=== PATIENT | female | born 1955 | race Caucasian/White ===

== ENCOUNTER 2022-02-17 16:16 | Observation (INO) | payer BC ==
[2022-02-17 20:14] VITALS: BMI 32.6
[2022-02-17] MEDS ORDERED: hydrALAZINE 20 MG/ML VIAL SLOW IVP PRN (20:43)
[2022-02-17] MEDS ORDERED: Ondansetron PF 4 MG/2 ML Vial IVP PRN (20:43)
[2022-02-17] MEDS ORDERED: Acetaminophen 325 MG TAB PO PRN (20:43)
[2022-02-17] MEDS ORDERED: Dextrose 5% in Water 1,000 ML IV PRN (20:43)
[2022-02-17] MEDS ORDERED: Ondansetron ODT 4 MG TAB PO PRN (20:43)
[2022-02-17] MEDS ORDERED: Acetaminophen 650 MG Suppository PR PRN (20:43)
[2022-02-17] MEDS ORDERED: HumaLOG 300 UNITS/3 ML VIAL SC PRN ×2 (20:43)
[2022-02-17] MEDS ORDERED: Dextrose 50% Abboject 50 ML SYRINGE SLOW IVP PRN (20:43)
[2022-02-18 05:54] LABS: #Eosinphils 0.1 thou/uL (0.0-0.7); #Lymphocytes 1.4 thou/uL (1.20-3.40); #Monocytes 0.6 thou/uL (0.11-0.59); #Neutrophils 1.9 thou/uL (1.40-6.50); %Basophils 1.2 % (0.0-1.0); %Eosinophils 2.2 % (0.0-10.0); %Lymphocytes 34.3 % (21.0-51.0); %Monocytes 14.2 % (0.0-10.0); %Neutrophils 48.1 % (42.0-75.0); Hemoglobin 12.1 g/dL (12.0-16.0); Mean Corpuscular HGB CONC 32.9 g/dL (32.0-36.0); Mean Corpuscular Hemoglobin 31.3 pg (27.0-31.0); Mean Corpuscular Volume 94.9 fL (78.0-98.0); Mean Platelet Volume 7.6 fL (7.4-10.4); Platelet Count 116 thou/uL (130-400); RBC Distribution Width 12.8 % (11.5-14.5); Red Blood Cell (RBC) Count 3.86 mill/uL (4.20-5.40); White Blood Cell (WBC) Count 3.9 thou/uL (4.8-10.8)
[2022-02-18 06:49] LABS: Anion Gap 13 mmol/L (10-20); BUN (Urea Nitrogen) 17 mg/dL (9.8-20.1); Calc. Creatinine Clearance 96 mL/min (70-130); Calcium 9.1 mg/dL (7.8-10.44); Carbon Dioxide 22 mmol/L (23-31); Cardiac Risk 5.1 (Less than 4.5); Chloride 105 mmol/L (98-107); Cholesterol 138 mg/dl (< 200 Desired); Glucose 125 mg/dL (80-115); HDL Cholesterol 27 mg/dL (>60 Neg Risk); LDL Cholesterol, Calculated 78 mg/dL; Potassium 3.9 mmol/L (3.5-5.1); Sodium 136 mmol/L (136-145); Triglycerides 163 mg/dL (Less than 150)
[2022-02-18] MEDS ORDERED: Aspirin 81 mg Enteric Coated Tablet PO SCH (09:00)
[2022-02-18] MEDS ORDERED: tiZANidine HCl 4 MG TAB PO PRN (13:58)
[2022-02-18] MEDS ORDERED: Gabapentin 300 MG CAP PO SCH (15:00)
[2022-02-18 15:47] VITALS: BP 150/98; TEMP 97.9
[2022-02-18] MEDS ORDERED: Atorvastatin Calcium 40 MG TAB PO SCH (21:00)
[2022-02-19] MEDS ORDERED: Amlodipine 10 MG TAB PO SCH (09:00)
[2022-02-19] MEDS ORDERED: Insulin Glargine 30 UNITS/0.3 ML VIAL SC SCH ×2 (09:00)
[2022-02-19] MEDS ORDERED: Losartan 25 MG TAB PO SCH (09:00)
[2022-02-19] MEDS ORDERED: Ezetimibe 10 MG TAB PO SCH (09:00)
[2022-02-19] MEDS ORDERED: Bupropion 150 MG XL TAB PO SCH (09:00)
== END 2022-02-18 17:40 | disposition home or self-care (01) ==
LOC: NEURO 17:50
PROVIDERS: ADMIT Internal Medicine; ATTEND Internal Medicine
DX: R20.2 Paresthesia of skin (principal); E11.9 Type 2 diabetes mellitus without complications; E78.5 Hyperlipidemia, unspecified; I10 Essential (primary) hypertension; M50.31 Other cervical disc degeneration, high cervical region; M48.02 Spinal stenosis, cervical region; I08.1 Rheumatic disorders of both mitral and tricuspid valves; E66.9 Obesity, unspecified; Z68.32 Body mass index [BMI] 32.0-32.9, adult; Z87.891 Personal history of nicotine dependence; Z79.4 Long term (current) use of insulin; Z79.84 Long term (current) use of oral hypoglycemic drugs; Z79.899 Other long term (current) drug therapy
CPT/HCPCS: 36415; 36416; 70551; 72141; 80048; 80061; 85025; 93306; 95712; 95819; 95957; G0378; J1815

== ENCOUNTER 2022-12-10 15:33 | Inpatient (IN) | payer MEDICARE ==
[2022-12-10 16:56] VITALS: BMI 31.2
[2022-12-10] MEDS ORDERED: Acetaminophen 500 MG TAB PO SCH (17:30)
[2022-12-10] MEDS ORDERED: cefTRIAXone Sodium 1,000 MG in Syringe 0 ML IVPB SCH (18:00)
[2022-12-10] MEDS ORDERED: Dextrose 5% in Water 1,000 ML IV PRN (18:19)
[2022-12-10] MEDS ORDERED: Dextrose 50% Abboject 50 ML SYRINGE SLOW IVP PRN (18:19)
[2022-12-10] MEDS: cefTRIAXone\\ROCEPHIN 1 GM in Sodium Chloride 0.9% 100 ML IVPB SCH (18:28)
[2022-12-10] MEDS: Sodium Chloride 0.9% 1,000 ML IV SCH (18:28)
[2022-12-10 19:51] LABS: Anion Gap 18 mmol/L (10-20); BUN (Urea Nitrogen) 44 mg/dL (9.8-20.1); Calc. Creatinine Clearance 46 mL/min (70-130); Calcium 8.3 mg/dL (7.8-10.44); Carbon Dioxide 16 mmol/L (23-31); Chloride 95 mmol/L (98-107); Estimated GFR 29; Glucose 227 mg/dL (80-115); Potassium 4.7 mmol/L (3.5-5.1); Sodium 124 mmol/L (136-145)
[2022-12-10 20:20] LABS: Bacteria/HPF 4+ HPF (None Seen); Bilirubin Negative (Negative); Blood, Urine Trace (Negative); CAUTI Indications for Culture Dysuria,urgency,freq; Clarity Turbid (Clear); Glucose, Urine (Dipstick) Normal (Negative); Ketone, Urine Negative (Negative); Leukocyte 500 Leu/uL (Negative); Nitrite Negative (Negative); Protein, Urine (Dipstick) 70 mg/dL (Neg-Trace); WBC/HPF Greater than 50 HPF (0-3); pH, Urine 5.5 (5.0-9.0)
[2022-12-10 20:22] LABS: Urine Culture Reflex Yes Yes
[2022-12-10 20:33] LABS: Creatinine, Urine 144.25 mg/dL (47-110); Potassium, Urine 38.7 mmol/L; Sodium, Urine Less than 20 mmol/L (Not Available)
[2022-12-10 20:49] LABS: SARS-CoV-2 NAA Rapid Test Not Detected (NotDetected)
[2022-12-10] MEDS: HumaLOG 300 UNITS/3 ML VIAL SC PRN (21:09)
[2022-12-10] MEDS: Insulin Glargine 30 UNITS/0.3 ML VIAL SC SCH (21:09)
[2022-12-10] MEDS: Heparin 5,000 UNITS/ML VIAL SC SCH (21:10)
[2022-12-10] MEDS: Morphine 2 MG/ML VIAL SLOW IVP PRN (21:19)
[2022-12-11 00:24] LABS: Anion Gap 12 mmol/L (10-20); BUN (Urea Nitrogen) 47 mg/dL (9.8-20.1); Calc. Creatinine Clearance 46 mL/min (70-130); Calcium 8.1 mg/dL (7.8-10.44); Carbon Dioxide 21 mmol/L (23-31); Chloride 97 mmol/L (98-107); Estimated GFR 29; Glucose 222 mg/dL (80-115); Potassium 4.5 mmol/L (3.5-5.1); Sodium 125 mmol/L (136-145)
[2022-12-11] MEDS: Acetaminophen 500 MG TAB PO PRN ×2 (03:16→21:04)
[2022-12-11] MEDS: Sodium Chloride 0.9% 1,000 ML IV SCH ×2 (03:18→14:05)
[2022-12-11] MEDS: Morphine 2 MG/ML VIAL SLOW IVP PRN ×3 (03:58→16:32)
[2022-12-11 07:39] LABS: Anion Gap 12 mmol/L (10-20); BUN (Urea Nitrogen) 46 mg/dL (9.8-20.1); Calc. Creatinine Clearance 50 mL/min (70-130); Calcium 7.8 mg/dL (7.8-10.44); Carbon Dioxide 20 mmol/L (23-31); Chloride 98 mmol/L (98-107); Estimated GFR 32; Glucose 201 mg/dL (80-115); Potassium 4.4 mmol/L (3.5-5.1); Sodium 126 mmol/L (136-145)
[2022-12-11] MEDS: Amlodipine 10 MG TAB PO SCH (08:04)
[2022-12-11] MEDS: Heparin 5,000 UNITS/ML VIAL SC SCH ×3 (08:10→21:04)
[2022-12-11] MEDS: Aspirin 81 mg Enteric Coated Tablet PO SCH (08:10)
[2022-12-11 08:32] LABS: Iron 19 ug/dL (50-170); Iron Binding Capacity, Total 270 mcg/dL (265-497)
[2022-12-11] MEDS: cefTRIAXone\\ROCEPHIN 1 GM in Sodium Chloride 0.9% 100 ML IVPB SCH (17:21)
[2022-12-11] MEDS: Atorvastatin Calcium 40 MG TAB PO SCH (21:04)
[2022-12-11] MEDS: Insulin Glargine 30 UNITS/0.3 ML VIAL SC SCH (21:05)
[2022-12-12] MEDS: Sodium Chloride 0.9% 1,000 ML IV SCH ×3 (01:54→20:20)
[2022-12-12] MEDS: Morphine 2 MG/ML VIAL SLOW IVP PRN ×2 (04:00→20:20)
[2022-12-12 06:24] LABS: Hemoglobin 8.5 g/dL (12.0-16.0); Mean Corpuscular HGB CONC 30.9 g/dL (32.0-36.0); Mean Corpuscular Hemoglobin 28.8 pg (27.0-31.0); Mean Corpuscular Volume 93.2 fl (78.0-98.0); Mean Platelet Volume 8.3 fL (7.4-10.4); Platelet Count 127 10x3/uL (130-400); RBC Distribution Width 14.5 % (11.5-14.5); Red Blood Cell (RBC) Count 2.94 mill/uL (4.20-5.40); White Blood Cell (WBC) Count 8.7 10x3/uL (4.8-10.8)
[2022-12-12 06:43] LABS: Anion Gap 12 mmol/L (10-20); BUN (Urea Nitrogen) 38 mg/dL (9.8-20.1); Calc. Creatinine Clearance 66 mL/min (70-130); Calcium 8.1 mg/dL (7.8-10.44); Carbon Dioxide 19 mmol/L (23-31); Chloride 100 mmol/L (98-107); Estimated GFR 45; Glucose 156 mg/dL (80-115); Potassium 3.9 mmol/L (3.5-5.1); Sodium 127 mmol/L (136-145)
[2022-12-12] MEDS: Aspirin 81 mg Enteric Coated Tablet PO SCH (07:55)
[2022-12-12] MEDS: Ferrous Sulfate 325 MG TAB PO SCH (07:55)
[2022-12-12] MEDS: Heparin 5,000 UNITS/ML VIAL SC SCH ×3 (07:55→19:57)
[2022-12-12] MEDS: Ezetimibe 10 MG TAB PO SCH (07:56)
[2022-12-12] MEDS: Amlodipine 10 MG TAB PO SCH (07:56)
[2022-12-12] MEDS: Acetaminophen 500 MG TAB PO PRN ×3 (08:00→19:57)
[2022-12-12] MEDS ORDERED: Meropenem 1 GM in Sodium Chloride 0.9% 100 ML IVPB SCH ×2 (09:15→14:00)
[2022-12-12 11:02] LABS: Band 3 % (5-11); Hypochromia SLIGHT = 6-15 cells (100X) (0-5/hpf); Lymphocytes 13 % (21-51); MDiff Complete? YES; Monocytes 9 % (0-10); Neutrophil 75 % (42-75); Platelet Morphology Comment Appears Decreased; Polychromasia SLIGHT = 2-3 cells (100X) (0-2/hpf)
[2022-12-12] MEDS: Atorvastatin Calcium 40 MG TAB PO SCH (19:56)
[2022-12-12] MEDS: Insulin Glargine 30 UNITS/0.3 ML VIAL SC SCH (20:02)
[2022-12-12] MEDS: Meropenem 1 GM in Sodium Chloride 0.9% 100 ML IVPB SCH (21:15)
[2022-12-13] MEDS: Meropenem 1 GM in Sodium Chloride 0.9% 100 ML IVPB SCH ×3 (05:50→22:26)
[2022-12-13] MEDS: Acetaminophen 500 MG TAB PO PRN ×3 (05:54→19:57)
[2022-12-13] MEDS: Sodium Chloride 0.9% 1,000 ML IV SCH ×2 (06:05→15:01)
[2022-12-13 07:27] LABS: #Basophils 0.1 thou/uL (0.0-0.2); #Lymphocytes 0.8 thou/uL (1.20-3.40); #Monocytes 0.9 thou/uL (0.11-0.59); #Neutrophils 4.9 thou/uL (1.40-6.50); %Basophils 2.2 % (0.0-1.0); %Eosinophils 0.7 % (0.0-10.0); %Lymphocytes 11.8 % (21.0-51.0); %Monocytes 13.6 % (0.0-10.0); %Neutrophils 71.7 % (42.0-75.0); Hemoglobin 8.1 g/dL (12.0-16.0); Mean Corpuscular HGB CONC 31.1 g/dL (32.0-36.0); Mean Corpuscular Hemoglobin 28.8 pg (27.0-31.0); Mean Corpuscular Volume 92.5 fl (78.0-98.0); Mean Platelet Volume 8.1 fL (7.4-10.4); Platelet Count 142 10x3/uL (130-400); RBC Distribution Width 14.8 % (11.5-14.5); Red Blood Cell (RBC) Count 2.81 mill/uL (4.20-5.40); White Blood Cell (WBC) Count 6.9 10x3/uL (4.8-10.8)
[2022-12-13 08:03] LABS: Anion Gap 11 mmol/L (10-20); BUN (Urea Nitrogen) 25 mg/dL (9.8-20.1); Calc. Creatinine Clearance 93 mL/min (70-130); Carbon Dioxide 18 mmol/L (23-31); Chloride 104 mmol/L (98-107); Estimated GFR 67; Glucose 147 mg/dL (80-115); Potassium 3.7 mmol/L (3.5-5.1); Sodium 129 mmol/L (136-145)
[2022-12-13] MEDS: Aspirin 81 mg Enteric Coated Tablet PO SCH (08:35)
[2022-12-13] MEDS: Heparin 5,000 UNITS/ML VIAL SC SCH ×3 (08:35→20:00)
[2022-12-13] MEDS: Amlodipine 10 MG TAB PO SCH (08:36)
[2022-12-13] MEDS: Ezetimibe 10 MG TAB PO SCH (08:36)
[2022-12-13] MEDS: Ferrous Sulfate 325 MG TAB PO SCH (08:36)
[2022-12-13] MEDS: Atorvastatin Calcium 40 MG TAB PO SCH (19:57)
[2022-12-13] MEDS: Insulin Glargine 30 UNITS/0.3 ML VIAL SC SCH (19:59)
[2022-12-13] MEDS: HumaLOG 300 UNITS/3 ML VIAL SC PRN (20:00)
[2022-12-14] MEDS: Acetaminophen 500 MG TAB PO PRN ×3 (01:17→20:21)
[2022-12-14] MEDS: Sodium Chloride 0.9% 1,000 ML IV SCH ×2 (04:19→11:57)
[2022-12-14] MEDS: Meropenem 1 GM in Sodium Chloride 0.9% 100 ML IVPB SCH ×3 (05:25→21:29)
[2022-12-14 06:31] LABS: #Eosinphils 0.1 thou/uL (0.0-0.7); #Lymphocytes 1.3 thou/uL (1.20-3.40); #Monocytes 0.9 thou/uL (0.11-0.59); #Neutrophils 4.9 thou/uL (1.40-6.50); %Basophils 0.5 % (0.0-1.0); %Eosinophils 1.3 % (0.0-10.0); %Lymphocytes 17.6 % (21.0-51.0); %Monocytes 12.1 % (0.0-10.0); %Neutrophils 68.6 % (42.0-75.0); Hemoglobin 8.8 g/dL (12.0-16.0); Mean Corpuscular HGB CONC 32.1 g/dL (32.0-36.0); Mean Corpuscular Hemoglobin 29.7 pg (27.0-31.0); Mean Corpuscular Volume 92.6 fl (78.0-98.0); Platelet Count 168 10x3/uL (130-400); RBC Distribution Width 14.9 % (11.5-14.5); Red Blood Cell (RBC) Count 2.97 mill/uL (4.20-5.40); White Blood Cell (WBC) Count 7.1 10x3/uL (4.8-10.8)
[2022-12-14 06:54] LABS: Anion Gap 9 mmol/L (10-20); BUN (Urea Nitrogen) 16 mg/dL (9.8-20.1); Calc. Creatinine Clearance 99 mL/min (70-130); Calcium 8.3 mg/dL (7.8-10.44); Carbon Dioxide 22 mmol/L (23-31); Chloride 104 mmol/L (98-107); Estimated GFR 73; Glucose 119 mg/dL (80-115); Potassium 4.1 mmol/L (3.5-5.1); Sodium 131 mmol/L (136-145)
[2022-12-14] MEDS: Heparin 5,000 UNITS/ML VIAL SC SCH ×3 (08:24→20:22)
[2022-12-14] MEDS: Ezetimibe 10 MG TAB PO SCH (08:24)
[2022-12-14] MEDS: Losartan 25 MG TAB PO SCH (08:24)
[2022-12-14] MEDS: Ferrous Sulfate 325 MG TAB PO SCH (08:24)
[2022-12-14] MEDS: Aspirin 81 mg Enteric Coated Tablet PO SCH (08:24)
[2022-12-14] MEDS: Amlodipine 10 MG TAB PO SCH (08:24)
[2022-12-14 16:15] LABS: A/G Ratio 0.6 (0.7-1.7); Albumin 2.4 g/dL (2.9-4.4); Alpha 1 0.4 g/dL (0.0-0.4); Alpha 2 0.9 g/dL (0.4-1.0); Beta 1.1 g/dL (0.7-1.3); Gamma 1.8 g/dL (0.4-1.8); Globulin, Total 4.2 g/dL (2.2-3.9); M-Spike Not Observed g/dL (Not Observed); Protein Electrophoresis Intrp Note: (.)
[2022-12-14] MEDS ORDERED: Loperamide HCl 2 MG CAP PO PRN (17:03)
[2022-12-14] MEDS ORDERED: Loperamide HCl 2 MG CAP PO SCH (17:15)
[2022-12-14] MEDS: Atorvastatin Calcium 40 MG TAB PO SCH (20:21)
[2022-12-14] MEDS: Insulin Glargine 30 UNITS/0.3 ML VIAL SC SCH (20:26)
[2022-12-14 21:41] LABS: Campy jejuni + coli by PCR Negative (Negative); STEC Shiga Toxin 1+2 Negative (Negative); Salmonella spp. by PCR Negative (Negative); Shigella spp + EIEC by PCR Negative (Negative)
[2022-12-15] MEDS: Acetaminophen 500 MG TAB PO PRN ×3 (01:22→13:09)
[2022-12-15] MEDS: Sodium Chloride 0.9% 1,000 ML IV SCH ×2 (01:24→10:26)
[2022-12-15] MEDS: Meropenem 1 GM in Sodium Chloride 0.9% 100 ML IVPB SCH ×2 (06:01→13:03)
[2022-12-15] MEDS: Aspirin 81 mg Enteric Coated Tablet PO SCH (08:12)
[2022-12-15] MEDS: Ezetimibe 10 MG TAB PO SCH (08:12)
[2022-12-15] MEDS: Heparin 5,000 UNITS/ML VIAL SC SCH ×2 (08:13→15:19)
[2022-12-15] MEDS: Losartan 25 MG TAB PO SCH (08:13)
[2022-12-15] MEDS: Ferrous Sulfate 325 MG TAB PO SCH (08:13)
[2022-12-15] MEDS: Amlodipine 10 MG TAB PO SCH (08:13)
[2022-12-15 08:21] VITALS: BP 137/68; TEMP 98.5
== END 2022-12-15 16:49 | disposition home health service (06) | DRG 872 ==
LOC: T4-B 15:33
PROVIDERS: ADMIT Internal Medicine; ATTEND Internal Medicine
PROC: 3E03329 Introduction of Other Anti-infective into Peripheral Vein, Percutaneous Approach (ICD-10-PCS; 2022-12-10)
PROC: 02HV33Z Insertion of Infusion Device into Superior Vena Cava, Percutaneous Approach (ICD-10-PCS; principal; 2022-12-15)
PROC: B5181ZA Fluoroscopy of Superior Vena Cava using Low Osmolar Contrast, Guidance (ICD-10-PCS; 2022-12-15)
PROC: B548ZZA Ultrasonography of Superior Vena Cava, Guidance (ICD-10-PCS; 2022-12-15)
DX: A41.51 Sepsis due to Escherichia coli [E. coli] (principal); N12 Tubulo-interstitial nephritis, not specified as acute or chronic; E87.1 Hypo-osmolality and hyponatremia; N17.9 Acute kidney failure, unspecified; R65.20 Severe sepsis without septic shock; Z20.822 Contact with and (suspected) exposure to COVID-19; N18.2 Chronic kidney disease, stage 2 (mild); E61.1 Iron deficiency; E11.40 Type 2 diabetes mellitus with diabetic neuropathy, unspecified; E11.22 Type 2 diabetes mellitus with diabetic chronic kidney disease; I12.9 Hypertensive chronic kidney disease with stage 1 through stage 4 chronic kidney disease, or unspecified chronic kidney disease; E78.5 Hyperlipidemia, unspecified; D63.1 Anemia in chronic kidney disease; Z88.1 Allergy status to other antibiotic agents; Z88.2 Allergy status to sulfonamides; Z79.899 Other long term (current) drug therapy; Z98.51 Tubal ligation status; Z89.419 Acquired absence of unspecified great toe; Z83.3 Family history of diabetes mellitus; Z82.49 Family history of ischemic heart disease and other diseases of the circulatory system
CPT/HCPCS: 36415; 36416; 36569; 71045; 72100; 76770; 80048; 81001; 82436; 82570; 82728; 83540; 83550; 83930; 83935; 84133; 84155; 84165; 84300; 85025; 87040; 87077; 87086; 87186; 87324; 87449; 87505; 97139; C1751; J0696; J1644; J1815; J2185; J2272; J3490; J7050

== ENCOUNTER 2022-12-26 13:02 | Inpatient (IN) | payer MEDICARE ==
[2022-12-26] MEDS ORDERED: Ondansetron PF 4 MG/2 ML Vial IVP PRN (14:24)
[2022-12-26] MEDS ORDERED: Senokot S 8.6-50 MG TAB PO PRN (14:24)
[2022-12-26] MEDS ORDERED: Furosemide 40 MG/4 ML VIAL SLOW IVP SCH (15:10)
[2022-12-26] MEDS ORDERED: Dextrose 5% in Water 1,000 ML IV PRN (15:17)
[2022-12-26] MEDS ORDERED: Dextrose 50% Abboject 50 ML SYRINGE SLOW IVP PRN (15:17)
[2022-12-26 15:25] LABS: Troponin I 0.059 ng/mL (< 0.028)
[2022-12-26 17:42] VITALS: BMI 33.4
[2022-12-26 19:40] LABS: Troponin I 0.054 ng/mL (< 0.028)
[2022-12-26] MEDS: Atorvastatin Calcium 40 MG TAB PO SCH (21:51)
[2022-12-26] MEDS: Carvedilol 3.125 MG TAB PO SCH (21:51)
[2022-12-26 23:37] LABS: Troponin I 0.053 ng/mL (< 0.028)
[2022-12-27 05:19] LABS: Anion Gap 12 mmol/L (10-20); BUN (Urea Nitrogen) 14 mg/dL (9.8-20.1); Calc. Creatinine Clearance 111 mL/min (70-130); Calcium 8.5 mg/dL (7.8-10.44); Carbon Dioxide 29 mmol/L (23-31); Chloride 100 mmol/L (98-107); Estimated GFR 79; Glucose 135 mg/dL (80-115); Magnesium 1.7 mg/dL (1.6-2.6); Potassium 3.6 mmol/L (3.5-5.1); Sodium 137 mmol/L (136-145)
[2022-12-27 05:28] LABS: Anisocytosis MODERATE=16-30 cells (100X) (0-5/hpf); Hemoglobin 8.7 g/dL (12.0-16.0); Lymphocytes 37 % (21-51); MDiff Complete? YES; Mean Corpuscular HGB CONC 32.3 g/dL (32.0-36.0); Mean Corpuscular Hemoglobin 29.6 pg (27.0-31.0); Mean Corpuscular Volume 91.6 fl (78.0-98.0); Mean Platelet Volume 7.5 fL (7.4-10.4); Monocytes 13 % (0-10); Neutrophil 50 % (42-75); Platelet Count 145 10x3/uL (130-400); Platelet Morphology Comment Appears Adequate; RBC Distribution Width 15.1 % (11.5-14.5); Red Blood Cell (RBC) Count 2.95 mill/uL (4.20-5.40); White Blood Cell (WBC) Count 3.2 10x3/uL (4.8-10.8)
[2022-12-27] MEDS ORDERED: Furosemide 40 MG/4 ML VIAL SLOW IVP SCH (06:00)
[2022-12-27] MEDS: Ezetimibe 10 MG TAB PO SCH (09:32)
[2022-12-27] MEDS: Saccharomyces boulardii 250 MG CAP PO SCH (09:32)
[2022-12-27] MEDS: Carvedilol 3.125 MG TAB PO SCH ×2 (09:32→22:29)
[2022-12-27] MEDS: Aspirin Chewable 81 MG TAB PO SCH (09:32)
[2022-12-27] MEDS: Furosemide 40 MG/4 ML VIAL SLOW IVP SCH (09:34)
[2022-12-27] MEDS: Cholecalciferol 1,000 UNITS (25 MCG) TAB PO SCH (09:55)
[2022-12-27] MEDS: HumaLOG 300 UNITS/3 ML VIAL SC PRN (11:48)
[2022-12-27] MEDS: Gabapentin 300 MG CAP PO SCH ×2 (15:15→22:28)
[2022-12-27] MEDS: metFORMIN 500 MG TAB PO SCH (16:30)
[2022-12-27] MEDS: Acetaminophen 325 MG TAB PO PRN (22:27)
[2022-12-27] MEDS: Magnesium Oxide 250 MG TAB PO SCH (22:28)
[2022-12-27] MEDS: Atorvastatin Calcium 40 MG TAB PO SCH (22:28)
[2022-12-27] MEDS: buPROPion 75 MG TAB PO SCH (22:30)
[2022-12-28 05:11] LABS: #Basophils 0.1 thou/uL (0.0-0.2); #Eosinphils 0.1 thou/uL (0.0-0.7); #Lymphocytes 0.3 thou/uL (1.20-3.40); #Monocytes 0.4 thou/uL (0.11-0.59); #Neutrophils 4.8 thou/uL (1.40-6.50); %Basophils 0.3 % (0.0-1.0); %Eosinophils 0.3 % (0.0-10.0); %Lymphocytes 7.7 % (21.0-51.0); %Monocytes 5.9 % (0.0-10.0); %Neutrophils 85.9 % (42.0-75.0); Hemoglobin 9.3 g/dL (12.0-16.0); Mean Corpuscular HGB CONC 31.9 g/dL (32.0-36.0); Mean Corpuscular Hemoglobin 28.9 pg (27.0-31.0); Mean Corpuscular Volume 90.6 fl (78.0-98.0); Mean Platelet Volume 9.1 fL (7.4-10.4); Platelet Count 108 10x3/uL (130-400); RBC Distribution Width 15.2 % (11.5-14.5); White Blood Cell (WBC) Count 5.6 10x3/uL (4.8-10.8)
[2022-12-28 05:20] LABS: Anion Gap 17 mmol/L (10-20); BUN (Urea Nitrogen) 20 mg/dL (9.8-20.1); Calc. Creatinine Clearance 84 mL/min (70-130); Calcium 8.7 mg/dL (7.8-10.44); Carbon Dioxide 22 mmol/L (23-31); Chloride 98 mmol/L (98-107); Estimated GFR 60; Glucose 143 mg/dL (80-115); Potassium 3.6 mmol/L (3.5-5.1); Sodium 133 mmol/L (136-145)
[2022-12-28] MEDS: HumaLOG 300 UNITS/3 ML VIAL SC PRN (06:09)
[2022-12-28] MEDS ORDERED: tiZANidine HCl 4 MG TAB PO PRN (09:00)
[2022-12-28] MEDS: metFORMIN 500 MG TAB PO SCH ×2 (09:10→18:14)
[2022-12-28] MEDS: Aspirin Chewable 81 MG TAB PO SCH (09:10)
[2022-12-28] MEDS: Gabapentin 300 MG CAP PO SCH ×2 (09:11→16:22)
[2022-12-28] MEDS: Saccharomyces boulardii 250 MG CAP PO SCH (09:11)
[2022-12-28] MEDS: Lisinopril 10 MG TAB PO SCH (09:16)
[2022-12-28] MEDS: glipiZIDE 5 MG TAB PO SCH (09:16)
[2022-12-28] MEDS: Carvedilol 3.125 MG TAB PO SCH ×2 (09:18→19:56)
[2022-12-28] MEDS: Cholecalciferol 1,000 UNITS (25 MCG) TAB PO SCH (09:18)
[2022-12-28] MEDS: Ezetimibe 10 MG TAB PO SCH (09:18)
[2022-12-28] MEDS: Furosemide 40 MG/4 ML VIAL SLOW IVP SCH (09:21)
[2022-12-28] MEDS: buPROPion 75 MG TAB PO SCH ×2 (12:04→19:57)
[2022-12-28] MEDS ORDERED: Gabapentin 300 MG CAP PO PRN (15:27)
[2022-12-28] MEDS: Atorvastatin Calcium 40 MG TAB PO SCH (19:56)
[2022-12-28] MEDS: Magnesium Oxide 250 MG TAB PO SCH (19:56)
[2022-12-28] MEDS: Acetaminophen 325 MG TAB PO PRN (19:58)
[2022-12-29] MEDS ORDERED: Loperamide HCl 2 MG CAP PO SCH (03:30)
[2022-12-29] MEDS ORDERED: Furosemide 40 MG TAB PO SCH (07:30)
[2022-12-29] MEDS: glipiZIDE 5 MG TAB PO SCH (07:47)
[2022-12-29] MEDS: Saccharomyces boulardii 250 MG CAP PO SCH (08:02)
[2022-12-29] MEDS: Cholecalciferol 1,000 UNITS (25 MCG) TAB PO SCH (08:02)
[2022-12-29] MEDS: Aspirin Chewable 81 MG TAB PO SCH (08:02)
[2022-12-29] MEDS: metFORMIN 500 MG TAB PO SCH (08:02)
[2022-12-29] MEDS: Ezetimibe 10 MG TAB PO SCH (08:03)
[2022-12-29] MEDS: Lisinopril 10 MG TAB PO SCH (08:03)
[2022-12-29] MEDS: Carvedilol 3.125 MG TAB PO SCH ×2 (08:03→19:56)
[2022-12-29] MEDS: Empagliflozin 10 MG TAB PO SCH (08:03)
[2022-12-29] MEDS ORDERED: oxyCODONE/Acetaminophen 5 mg/325 mg Tablet PO PRN (09:08)
[2022-12-29] MEDS ORDERED: Iopamidol 370 76% 100 ML VIAL ONE (09:24)
[2022-12-29 10:13] LABS: Anion Gap 12 mmol/L (10-20); BUN (Urea Nitrogen) 27 mg/dL (9.8-20.1); Calc. Creatinine Clearance 67 mL/min (70-130); Calcium 8.2 mg/dL (7.8-10.44); Carbon Dioxide 28 mmol/L (23-31); Chloride 95 mmol/L (98-107); Estimated GFR 45; Glucose 174 mg/dL (80-115); Magnesium 1.7 mg/dL (1.6-2.6); Potassium 2.9 mmol/L (3.5-5.1); Sodium 132 mmol/L (136-145)
[2022-12-29] MEDS ORDERED: Sodium Chloride 0.9% 500 ML IV SCH ×2 (10:45→13:00)
[2022-12-29] MEDS ORDERED: Potassium Chloride 20 MEQ TAB PO SCH (10:45)
[2022-12-29] MEDS: buPROPion 75 MG TAB PO SCH ×2 (12:45→19:56)
[2022-12-29] MEDS: Potassium Chloride 10 MEQ in Premix Bag 1 BAG IVPB SCH ×2 (12:46→13:33)
[2022-12-29] MEDS: Vancomycin HCl 125 MG/5 ML (BATCHED) UDCUP PO SCH ×3 (13:21→23:20)
[2022-12-29] MEDS ORDERED: Albuterol HFA (OR) 200 PUFF INH INH PRN (15:00)
[2022-12-29 15:24] LABS: Anion Gap 16 mmol/L (10-20); BUN (Urea Nitrogen) 28 mg/dL (9.8-20.1); Calc. Creatinine Clearance 56 mL/min (70-130); Calcium 8.3 mg/dL (7.8-10.44); Carbon Dioxide 24 mmol/L (23-31); Chloride 97 mmol/L (98-107); Estimated GFR 36; Glucose 113 mg/dL (80-115); Potassium 3.5 mmol/L (3.5-5.1); Sodium 133 mmol/L (136-145)
[2022-12-29] MEDS: Sodium Chloride 0.9% 1,000 ML IV SCH (17:09)
[2022-12-29] MEDS: DOBUTamine 500 mg/250 ml 250 ML IVPB SCH ×2 (17:10→17:11)
[2022-12-29] MEDS: Atorvastatin Calcium 40 MG TAB PO SCH (19:56)
[2022-12-29] MEDS: Magnesium Oxide 250 MG TAB PO SCH (19:56)
[2022-12-30] MEDS: Vancomycin HCl 125 MG/5 ML (BATCHED) UDCUP PO SCH ×2 (05:15→10:47)
[2022-12-30 05:50] LABS: Hemoglobin 8.1 g/dL (12.0-16.0); Mean Corpuscular HGB CONC 31.9 g/dL (32.0-36.0); Mean Corpuscular Hemoglobin 28.6 pg (27.0-31.0); Mean Corpuscular Volume 89.6 fl (78.0-98.0); RBC Distribution Width 14.7 % (11.5-14.5); Red Blood Cell (RBC) Count 2.82 mill/uL (4.20-5.40); White Blood Cell (WBC) Count 3.5 10x3/uL (4.8-10.8)
[2022-12-30 06:26] LABS: Anion Gap 15 mmol/L (10-20); BUN (Urea Nitrogen) 23 mg/dL (9.8-20.1); Calc. Creatinine Clearance 74 mL/min (70-130); Calcium 8.6 mg/dL (7.8-10.44); Carbon Dioxide 23 mmol/L (23-31); Cardiac Risk 4.8 (Less than 4.5); Chloride 102 mmol/L (98-107); Cholesterol 77 mg/dl (< 200 Desired); Estimated GFR 51; Glucose 98 mg/dL (80-115); HDL Cholesterol 16 mg/dL (>60 Neg Risk); LDL Cholesterol, Calculated 34 mg/dL; Sodium 137 mmol/L (136-145); Triglycerides 134 mg/dL (Less than 150)
[2022-12-30 06:28] LABS: #Eosinphils 0.1 thou/uL (0.0-0.7); #Lymphocytes 1.1 thou/uL (1.20-3.40); #Monocytes 0.4 thou/uL (0.11-0.59); #Neutrophils 1.9 thou/uL (1.40-6.50); %Basophils 0.3 % (0.0-1.0); %Eosinophils 2.3 % (0.0-10.0); %Lymphocytes 32.4 % (21.0-51.0); %Monocytes 11.3 % (0.0-10.0); %Neutrophils 53.8 % (42.0-75.0); Mean Platelet Volume 8.5 fL (7.4-10.4); Platelet Count 115 10x3/uL (130-400); Platelet Morphology Comment Appears Decreased
[2022-12-30] MEDS: DOBUTamine 500 mg/250 ml 250 ML IVPB SCH (10:30)
[2022-12-30] MEDS: Empagliflozin 10 MG TAB PO SCH (10:47)
[2022-12-30] MEDS: Aspirin Chewable 81 MG TAB PO SCH (10:47)
[2022-12-30] MEDS: Cholecalciferol 1,000 UNITS (25 MCG) TAB PO SCH (10:47)
[2022-12-30] MEDS: Carvedilol 3.125 MG TAB PO SCH (10:47)
[2022-12-30] MEDS: Ezetimibe 10 MG TAB PO SCH (10:48)
[2022-12-30] MEDS: glipiZIDE 5 MG TAB PO SCH (10:48)
[2022-12-30] MEDS: buPROPion 75 MG TAB PO SCH (10:48)
[2022-12-30] MEDS: Saccharomyces boulardii 250 MG CAP PO SCH (10:48)
[2022-12-30] MEDS: Sodium Chloride 0.9% 1,000 ML IV SCH (10:50)
[2022-12-30 13:21] VITALS: BP 168/85; TEMP 97.5
== END 2022-12-30 15:00 | disposition home or self-care (01) | DRG 291 ==
LOC: 2NO 14:30
PROVIDERS: ADMIT Internal Medicine; ATTEND Family Medicine
DX: I13.0 Hypertensive heart and chronic kidney disease with heart failure and stage 1 through stage 4 chronic kidney disease, or unspecified chronic kidney disease (principal); I50.43 Acute on chronic combined systolic (congestive) and diastolic (congestive) heart failure; A04.72 Enterocolitis due to Clostridium difficile, not specified as recurrent; N17.9 Acute kidney failure, unspecified; I24.8 Other forms of acute ischemic heart disease; I42.0 Dilated cardiomyopathy; E78.5 Hyperlipidemia, unspecified; E11.621 Type 2 diabetes mellitus with foot ulcer; L97.529 Non-pressure chronic ulcer of other part of left foot with unspecified severity; R09.02 Hypoxemia; N18.9 Chronic kidney disease, unspecified; E87.6 Hypokalemia; E11.22 Type 2 diabetes mellitus with diabetic chronic kidney disease; Z88.2 Allergy status to sulfonamides; Z88.1 Allergy status to other antibiotic agents; Z79.899 Other long term (current) drug therapy; Z98.51 Tubal ligation status; Z89.411 Acquired absence of right great toe; Z87.891 Personal history of nicotine dependence
CPT/HCPCS: 36415; 36416; 71275; 80048; 80061; 83735; 83880; 84443; 85025; 85379; 87324; 87449; 87493; 93306; 93798; 93970; J1250; J1650; J1815; J1940; J3480; J7030; J7050; Q9967

== ENCOUNTER 2025-07-01 09:44 | Emergency (ER) | payer OTHER ==
[2025-07-01] MEDS ORDERED: oxyCODONE 5 MG TAB PO SCH (11:30)
[2025-07-01] MEDS ORDERED: Iopamidol-370 76% 500 ML MDV (1 ML CHARGE) ONE (12:33)
[2025-07-01 12:47] LABS: #Basophils 0.05 10x3/uL (0.0-0.2); #Eosinophils 0.11 10x3/uL (0.0-0.7); #Monocytes 1.01 10x3/uL (0.11-0.59); #Neutrophils 3.43 10x3/uL (1.40-6.50); %Basophils 0.9 % (0.0-1.0); %Eosinophils 1.9 % (0.0-10.0); %Lymphocytes 18.7 % (21.0-51.0); %Monocytes 17.8 % (0.0-10.0); %Neutrophils 60.3 % (42.0-75.0); Hematocrit 34.1 % (36.0-47.0); Hemoglobin 10.5 g/dL (12.0-16.0); Mean Corpuscular Hemoglobin 30.3 pg (27.0-31.0); Mean Corpuscular Volume 98.6 fL (78.0-98.0); Platelet Count 83 10x3/uL (130-400); Red Blood Cell (RBC) Count 3.46 mill/uL (4.20-5.40); White Blood Cell (WBC) Count 5.68 10x3/uL (4.8-10.8)
[2025-07-01 13:01] LABS: ALT (SGPT) 19 U/L (Less than 34); AST (SGOT) 59 U/L (11-34); Albumin 1.9 g/dL (3.1-4.5); Alkaline Phosphatase 81 U/L (40-110); Anion Gap 9 mmol/L (10-20); BUN (Urea Nitrogen) 24 mg/dL (9.8-20.1); Bilirubin, Total 1.0 mg/dL (0.3-1.2); Calc. Creatinine Clearance 0 mL/min (70-130); Calcium 8.1 mg/dL (7.8-10.44); Carbon Dioxide 30 mmol/L (23-31); Chloride 100 mmol/L (98-107); Globulin 5.7 g/dL (2.4-3.5); Glucose 160 mg/dL (80-115); Potassium 4.4 mmol/L (3.5-5.1); Sodium 135 mmol/L (136-145)
[2025-07-01 13:16] LABS: Anisocytosis SLIGHT = 6-15 cells HPF (0-5); Macrocytosis SLIGHT = 6-15 cells HPF (0-5); Platelet Adequacy Comment Platelets Decreased; Polychromasia SLIGHT = 2-3 cells HPF (0-2)
== END 2025-07-01 15:01 | disposition home or self-care (01) ==
LOC: ERS 09:44
DX: S22.41XD Multiple fractures of ribs, right side, subsequent encounter for fracture with routine healing (principal); R22.2 Localized swelling, mass and lump, trunk; L76.34 Postprocedural seroma of skin and subcutaneous tissue following other procedure; J90 Pleural effusion, not elsewhere classified; E11.9 Type 2 diabetes mellitus without complications; X50.1XXD Overexertion from prolonged static or awkward postures, subsequent encounter
CPT/HCPCS: 71101; 71260; 73080; 73564; 80053; 85025; 93005; J2270; 96374; Q9967

== ENCOUNTER 2025-07-08 12:17 | Day surgery (SDC) | payer OTHER ==
[2025-07-08] MEDS ORDERED: Sodium Bicarbonate 2.5 MEQ/5 ML SDV ONE (13:22)
[2025-07-08] MEDS ORDERED: Lidocaine 1% PF 5 ML VIAL ONE (13:22)
[2025-07-08 16:57] LABS: RBC Count-Automated (BF) 0 /cu.mm; WBC/Nucleated-Auto (BF) 56 /cu.mm
[2025-07-08 17:34] LABS: BF Segmented Neutrophils 10 %; Cell Count Non Hematic 23 %
== END 2025-07-08 15:10 | disposition home or self-care (01) ==
LOC: ULT 12:17
PROVIDERS: ATTEND Student in an Organized Health Care Education/Training Program
PROC: 0W9G3ZZ Drainage of Peritoneal Cavity, Percutaneous Approach (ICD-10-PCS; principal; 2025-07-08)
DX: R18.8 Other ascites (principal)
CPT/HCPCS: 49083; 85060; 87070; 87205; 89051

== ENCOUNTER 2025-07-16 11:41 | Inpatient (IN) | payer OTHER ==
[2025-07-16 12:30] LABS: #Basophils 0.05 10x3/uL (0.0-0.2); #Eosinophils 0.10 10x3/uL (0.0-0.7); #Monocytes 1.19 10x3/uL (0.11-0.59); #Neutrophils 4.65 10x3/uL (1.40-6.50); %Basophils 0.7 % (0.0-1.0); %Eosinophils 1.4 % (0.0-10.0); %Lymphocytes 14.3 % (21.0-51.0); %Monocytes 17.0 % (0.0-10.0); %Neutrophils 66.3 % (42.0-75.0); Hematocrit 32.4 % (36.0-47.0); Hemoglobin 10.4 g/dL (12.0-16.0); Mean Corpuscular Hemoglobin 30.6 pg (27.0-31.0); Mean Corpuscular Volume 95.3 fL (78.0-98.0); Platelet Count 107 10x3/uL (130-400); Red Blood Cell (RBC) Count 3.40 mill/uL (4.20-5.40); White Blood Cell (WBC) Count 7.01 10x3/uL (4.8-10.8)
[2025-07-16 12:47] LABS: Anion Gap 13 mmol/L (10-20); BUN (Urea Nitrogen) 31 mg/dL (9.8-20.1); Calc. Creatinine Clearance 0 mL/min (70-130); Carbon Dioxide 25 mmol/L (23-31); Chloride 100 mmol/L (98-107); Potassium 4.6 mmol/L (3.5-5.1); Sodium 133 mmol/L (136-145)
[2025-07-16 12:48] LABS: ALT (SGPT) 20 U/L (Less than 34); AST (SGOT) 40 U/L (11-34); Albumin 1.7 g/dL (3.1-4.5); Alkaline Phosphatase 96 U/L (40-110); Bilirubin, Total 1.0 mg/dL (0.3-1.2); Calcium 7.8 mg/dL (7.8-10.44); Globulin 5.1 g/dL (2.4-3.5); Glucose 170 mg/dL (80-115)
[2025-07-16 12:51] LABS: Ovalocytes SLIGHT = 2-5 cells HPF (0-1); Platelet Adequacy Comment Platelets Decreased; Polychromasia SLIGHT = 2-3 cells HPF (0-2)
[2025-07-16] MEDS ORDERED: Furosemide 40 MG (4 mL) VIAL ONE (16:23)
[2025-07-16] MEDS ORDERED: Ondansetron PF 4 MG/2 ML Vial IVP PRN (18:34)
[2025-07-16] MEDS ORDERED: Glucagon 1 MG/ML KIT IM PRN (18:34)
[2025-07-16] MEDS ORDERED: Melatonin 3 MG TAB PO PRN (18:34)
[2025-07-16] MEDS ORDERED: Dextrose 50% Abboject 50 ML SYRINGE SLOW IVP PRN (18:34)
[2025-07-16] MEDS ORDERED: Acetaminophen 325 MG TAB PO PRN (18:34)
[2025-07-16 20:25] LABS: Iron 104 ug/dL (50-170); Iron Binding Capacity, Total 180 mcg/dL (265-497)
[2025-07-16 20:39] LABS: Thyroid Stimulating Hormone 4.88 uIU/mL (0.35-4.94)
[2025-07-16 20:44] VITALS: BMI 30.7
[2025-07-16] MEDS: Heparin 5,000 UNITS/ML VIAL SC SCH (23:02)
[2025-07-16] MEDS: Insulin Glargine 30 UNITS/0.3 ML VIAL SC SCH (23:02)
[2025-07-16] MEDS: Albumin 25% 25 GM (100 mL) BOT IVPB SCH (23:03)
[2025-07-16 23:09] LABS: INR-International Normal Ratio 1.6; Prothrombin Time 19.1 sec (12.0-14.7)
[2025-07-16 23:10] LABS: PTT 40.9 sec (22.9-36.1)
[2025-07-17 03:41] LABS: Bacteria/HPF None Seen HPF (None Seen); Glucose, Urine (Dipstick) Greater than 1000 mg/dL (Negative); Leukocyte Negative Leu/uL (Negative); Protein, Urine (Dipstick) Negative (Neg-Trace); RBC/HPF 0-3 HPF (0-3); Specific Gravity, Urine 1.011 (1.002-1.036); WBC/HPF 0-3 HPF (0-3)
[2025-07-17 04:11] LABS: #Basophils 0.05 10x3/uL (0.0-0.2); #Eosinophils 0.09 10x3/uL (0.0-0.7); #Monocytes 0.93 10x3/uL (0.11-0.59); #Neutrophils 3.39 10x3/uL (1.40-6.50); %Basophils 0.9 % (0.0-1.0); %Eosinophils 1.6 % (0.0-10.0); %Lymphocytes 18.3 % (21.0-51.0); %Monocytes 17.0 % (0.0-10.0); %Neutrophils 62.0 % (42.0-75.0); Hematocrit 29.6 % (36.0-47.0); Hemoglobin 9.4 g/dL (12.0-16.0); Mean Corpuscular Hemoglobin 30.5 pg (27.0-31.0); Mean Corpuscular Volume 96.1 fL (78.0-98.0); Platelet Count 90 10x3/uL (130-400); Red Blood Cell (RBC) Count 3.08 mill/uL (4.20-5.40); White Blood Cell (WBC) Count 5.47 10x3/uL (4.8-10.8)
[2025-07-17 04:15] LABS: ALT (SGPT) 15 U/L (Less than 34); AST (SGOT) 37 U/L (11-34); Albumin 1.9 g/dL (3.1-4.5); Alkaline Phosphatase 82 U/L (40-110); Anion Gap 9 mmol/L (10-20); BUN (Urea Nitrogen) 33 mg/dL (9.8-20.1); Bilirubin, Total 0.9 mg/dL (0.3-1.2); Calc. Creatinine Clearance 42 mL/min (70-130); Calcium 7.9 mg/dL (7.8-10.44); Carbon Dioxide 28 mmol/L (23-31); Chloride 102 mmol/L (98-107); Globulin 4.4 g/dL (2.4-3.5); Glucose 139 mg/dL (80-115); Magnesium 2.0 mg/dL (1.6-2.6); Potassium 4.2 mmol/L (3.5-5.1); Sodium 135 mmol/L (136-145)
[2025-07-17] MEDS: Furosemide 40 MG (4 mL) VIAL SLOW IVP SCH (06:44)
[2025-07-17] MEDS: Pantoprazole 40 MG DR.TAB PO SCH (11:20)
[2025-07-17] MEDS: Aspirin 81 mg Enteric Coated Tablet PO SCH (11:20)
[2025-07-17] MEDS: Albumin 25% 25 GM (100 mL) BOT IVPB SCH ×2 (11:30→21:40)
[2025-07-17 13:13] VITALS: BMI 30.6
[2025-07-17] MEDS ORDERED: Lidocaine 1% PF 5 ML VIAL ONE (15:33)
[2025-07-17] MEDS ORDERED: Sodium Bicarbonate 2.5 MEQ/5 ML SDV ONE (15:34)
[2025-07-17] MEDS: Octreotide Acetate 1,250 MCG in Sodium Chloride 0.9% 250 ML 250 ML IVPB SCH (17:04)
[2025-07-17 17:20] LABS: RBC Count-Automated (BF) 9 /cu.mm; WBC/Nucleated-Auto (BF) 0 /cu.mm
[2025-07-17] MEDS: Sacubitril 24MG/Valsartan 26 MG TAB PO SCH (21:39)
[2025-07-18 04:28] LABS: ALT (SGPT) 14 U/L (Less than 34); AST (SGOT) 36 U/L (11-34); Albumin 2.8 g/dL (3.1-4.5); Alkaline Phosphatase 67 U/L (40-110); Anion Gap 14 mmol/L (10-20); BUN (Urea Nitrogen) 31 mg/dL (9.8-20.1); Bilirubin, Total 1.4 mg/dL (0.3-1.2); Calc. Creatinine Clearance 44 mL/min (70-130); Calcium 8.4 mg/dL (7.8-10.44); Carbon Dioxide 27 mmol/L (23-31); Chloride 101 mmol/L (98-107); Globulin 3.8 g/dL (2.4-3.5); Glucose 120 mg/dL (80-115); Magnesium 2.1 mg/dL (1.6-2.6); Potassium 4.3 mmol/L (3.5-5.1); Sodium 138 mmol/L (136-145)
[2025-07-18 04:30] LABS: INR-International Normal Ratio 1.6; Prothrombin Time 19.6 sec (12.0-14.7)
[2025-07-18 04:41] LABS: #Basophils 0.03 10x3/uL (0.0-0.2); #Eosinophils 0.05 10x3/uL (0.0-0.7); #Monocytes 0.62 10x3/uL (0.11-0.59); #Neutrophils 2.21 10x3/uL (1.40-6.50); %Basophils 0.8 % (0.0-1.0); %Eosinophils 1.3 % (0.0-10.0); %Lymphocytes 21.5 % (21.0-51.0); %Monocytes 16.7 % (0.0-10.0); %Neutrophils 59.4 % (42.0-75.0); Hematocrit 26.8 % (36.0-47.0); Hemoglobin 8.8 g/dL (12.0-16.0); Mean Corpuscular Hemoglobin 31.1 pg (27.0-31.0); Mean Corpuscular Volume 94.7 fL (78.0-98.0); Platelet Count 70 10x3/uL (130-400); Red Blood Cell (RBC) Count 2.83 mill/uL (4.20-5.40); White Blood Cell (WBC) Count 3.72 10x3/uL (4.8-10.8)
[2025-07-18] MEDS: Furosemide 40 MG (4 mL) VIAL SLOW IVP SCH (06:05)
[2025-07-18] MEDS: Carvedilol 3.125 MG TAB PO SCH (08:55)
[2025-07-18] MEDS ORDERED: Carvedilol 3.125 MG TAB PO SCH (09:00)
[2025-07-18] MEDS: Acetaminophen 325 MG TAB PO PRN (09:03)
[2025-07-19 02:37] LABS: Actual Bicarbonate (HCO3a) 26.3 mEq/L (22-28); Base Excess (BEa) 3.0 mEq/L (-2.0 to +3.0); CO2 Tension 35.2 mmHg (35.0-45.0); Calcium, Ionized (arterial) 1.11 mmol/L (1.12-1.30); Hematocrit-ABG 32 % (36.0-47.0); Hemoglobin (Hb) 10.8 g/dL (12.0-16.0); O2 Tension (PaO2), arterial 72.5 mmHg (> 80.0); Potassium - ABG Lab 4.19 mmol/L (3.70-5.30); pH, Arterial 7.491 (7.35-7.45)
[2025-07-19 02:38] LABS: Puncture Site Left Radial artery
[2025-07-19 02:54] LABS: ALT (SGPT) 15 U/L (Less than 34); AST (SGOT) 33 U/L (11-34); Albumin 3.0 g/dL (3.1-4.5); Alkaline Phosphatase 70 U/L (40-110); Anion Gap 13 mmol/L (10-20); BUN (Urea Nitrogen) 29 mg/dL (9.8-20.1); Bilirubin, Total 1.5 mg/dL (0.3-1.2); Calc. Creatinine Clearance 42 mL/min (70-130); Calcium 8.4 mg/dL (7.8-10.44); Carbon Dioxide 28 mmol/L (23-31); Chloride 100 mmol/L (98-107); Globulin 4.0 g/dL (2.4-3.5); Glucose 157 mg/dL (80-115); Potassium 4.3 mmol/L (3.5-5.1); Sodium 137 mmol/L (136-145)
[2025-07-19] MEDS: Lactulose 10 GM/15 ML Oral Solution PR SCH ×4 (03:13→22:18)
[2025-07-19 03:53] LABS: ALT (SGPT) 14 U/L (Less than 34); AST (SGOT) 49 U/L (11-34); Albumin 3.0 g/dL (3.1-4.5); Alkaline Phosphatase 70 U/L (40-110); Bilirubin, Direct 0.8 mg/dL (0.1-0.3); Bilirubin, Total 1.5 mg/dL (0.3-1.2); Magnesium 2.1 mg/dL (1.6-2.6)
[2025-07-19] MEDS ORDERED: Lactulose 10 GM/15 ML Oral Solution PR PRN (07:15)
[2025-07-19] MEDS: Lactulose 20 GM (30 mL) UDCUP PO SCH (09:00)
[2025-07-19] MEDS: Pantoprazole 40 MG VIAL IVP SCH (10:28)
[2025-07-19] MEDS ORDERED: Lactulose 20 GM (30 mL) UDCUP PR SCH (14:00)
[2025-07-19] MEDS: Lactulose 20 GM (30 mL) UDCUP PO STA (17:42)
[2025-07-19] MEDS: Lactulose 20 GM (30 mL) UDCUP PR SCH (17:42)
[2025-07-19 18:45] LABS: Anion Gap 16 mmol/L (10-20); BUN (Urea Nitrogen) 32 mg/dL (9.8-20.1); Calc. Creatinine Clearance 40 mL/min (70-130); Calcium 8.2 mg/dL (7.8-10.44); Carbon Dioxide 23 mmol/L (23-31); Chloride 102 mmol/L (98-107); Glucose 157 mg/dL (80-115); Potassium 4.3 mmol/L (3.5-5.1); Sodium 137 mmol/L (136-145)
[2025-07-19] MEDS: cefTRIAXone\\ROCEPHIN 2 GM in Sodium Chloride 0.9% 100 ML IVPB SCH (20:10)
[2025-07-19] MEDS: Rifaximin 550 MG TAB PO SCH (22:21)
[2025-07-20 04:42] LABS: #Basophils Less than 0.03 10x3/uL (0.0-0.2); #Eosinophils Less than 0.03 10x3/uL (0.0-0.7); #Monocytes 1.31 10x3/uL (0.11-0.59); #Neutrophils 7.84 10x3/uL (1.40-6.50); %Basophils 0.1 % (0.0-1.0); %Eosinophils 0.0 % (0.0-10.0); %Lymphocytes 6.2 % (21.0-51.0); %Monocytes 13.4 % (0.0-10.0); %Neutrophils 80.1 % (42.0-75.0); Hematocrit 33.0 % (36.0-47.0); Hemoglobin 10.6 g/dL (12.0-16.0); Mean Corpuscular Hemoglobin 29.9 pg (27.0-31.0); Mean Corpuscular Volume 93.0 fL (78.0-98.0); Platelet Count 94 10x3/uL (130-400); Red Blood Cell (RBC) Count 3.55 mill/uL (4.20-5.40); White Blood Cell (WBC) Count 9.79 10x3/uL (4.8-10.8)
[2025-07-20 04:49] LABS: Anion Gap 20 mmol/L (10-20); BUN (Urea Nitrogen) 36 mg/dL (9.8-20.1); Calc. Creatinine Clearance 36 mL/min (70-130); Calcium 8.0 mg/dL (7.8-10.44); Carbon Dioxide 22 mmol/L (23-31); Chloride 102 mmol/L (98-107); Glucose 163 mg/dL (80-115); Magnesium 2.1 mg/dL (1.6-2.6); Potassium 4.2 mmol/L (3.5-5.1); Sodium 140 mmol/L (136-145)
[2025-07-20] MEDS: Pantoprazole 40 MG VIAL IVP SCH (09:59)
[2025-07-20] MEDS: Albumin 25% 25 GM (100 mL) BOT IVPB SCH (13:51)
[2025-07-20] MEDS: Lactulose 20 GM (30 mL) UDCUP PER TUBE SCH ×3 (15:09→21:12)
[2025-07-20] MEDS: cefTRIAXone\\ROCEPHIN 2 GM in Sodium Chloride 0.9% 100 ML IVPB SCH (17:46)
[2025-07-21] MEDS: Furosemide 40 MG (4 mL) VIAL SLOW IVP SCH ×2 (00:25→03:43)
[2025-07-21 01:18] LABS: Hematocrit 32.6 % (36.0-47.0); Hemoglobin 10.2 g/dL (12.0-16.0); Mean Corpuscular Hemoglobin 29.9 pg (27.0-31.0); Mean Corpuscular Volume 95.6 fL (78.0-98.0); Platelet Count 99 10x3/uL (130-400); Red Blood Cell (RBC) Count 3.41 mill/uL (4.20-5.40); White Blood Cell (WBC) Count 8.15 10x3/uL (4.8-10.8)
[2025-07-21 01:23] LABS: Actual Bicarbonate (HCO3a) 21.5 mEq/L (22-28); Base Excess (BEa) -1.8 mEq/L (-2.0 to +3.0); CO2 Tension 31.9 mmHg (35.0-45.0); Calcium, Ionized (arterial) 1.06 mmol/L (1.12-1.30); Hematocrit-ABG 33 % (36.0-47.0); Hemoglobin (Hb) 11.2 g/dL (12.0-16.0); O2 Tension (PaO2), arterial 88.0 mmHg (> 80.0); Potassium - ABG Lab 3.90 mmol/L (3.70-5.30); pH, Arterial 7.447 (7.35-7.45)
[2025-07-21 01:28] LABS: ALT (SGPT) 14 U/L (Less than 34); AST (SGOT) 39 U/L (11-34); Albumin 3.2 g/dL (3.1-4.5); Alkaline Phosphatase 69 U/L (40-110); Anion Gap 22 mmol/L (10-20); BUN (Urea Nitrogen) 44 mg/dL (9.8-20.1); Bilirubin, Total 2.1 mg/dL (0.3-1.2); Calc. Creatinine Clearance 37 mL/min (70-130); Calcium 8.1 mg/dL (7.8-10.44); Carbon Dioxide 21 mmol/L (23-31); Chloride 105 mmol/L (98-107); Globulin 4.1 g/dL (2.4-3.5); Glucose 200 mg/dL (80-115); Potassium 4.1 mmol/L (3.5-5.1); Sodium 144 mmol/L (136-145)
[2025-07-21 01:43] LABS: Anisocytosis SLIGHT = 6-15 cells HPF (0-5); Platelet Adequacy Comment Platelets Decreased; Polychromasia SLIGHT = 2-3 cells HPF (0-2)
[2025-07-21] MEDS: Lactulose 10 GM/15 ML Oral Solution PR SCH (03:41)
[2025-07-21] MEDS ORDERED: VANCOMYCIN 2 GRAM/400 ML Premix BAG IVPB SCH (08:45)
[2025-07-21] MEDS ORDERED: Lactulose 10 GM/15 ML Oral Solution PR SCH (09:45)
[2025-07-21 12:43] VITALS: BP 39/24; TEMP 103.1
[2025-07-21] MEDS ORDERED: Furosemide 20 MG (2 mL) VIAL SLOW IVP SCH (14:00)
== END 2025-07-21 12:45 | disposition hospice, inpatient (51) | DRG 432 ==
LOC: ERS 11:41 → PCU 18:06
PROVIDERS: ADMIT Family Medicine; ATTEND Internal Medicine
PROC: 0W9G3ZZ Drainage of Peritoneal Cavity, Percutaneous Approach (ICD-10-PCS; principal; 2025-07-17)
DX: K74.60 Unspecified cirrhosis of liver (principal); E43 Unspecified severe protein-calorie malnutrition; I50.23 Acute on chronic systolic (congestive) heart failure; N18.4 Chronic kidney disease, stage 4 (severe); E87.1 Hypo-osmolality and hyponatremia; I85.00 Esophageal varices without bleeding; N17.9 Acute kidney failure, unspecified; R18.8 Other ascites; I13.0 Hypertensive heart and chronic kidney disease with heart failure and stage 1 through stage 4 chronic kidney disease, or unspecified chronic kidney disease; Z51.5 Encounter for palliative care; Z66 Do not resuscitate; K76.82 Hepatic encephalopathy; I50.9 Heart failure, unspecified; E78.5 Hyperlipidemia, unspecified; I25.10 Atherosclerotic heart disease of native coronary artery without angina pectoris; E88.09 Other disorders of plasma-protein metabolism, not elsewhere classified; I25.5 Ischemic cardiomyopathy; E11.22 Type 2 diabetes mellitus with diabetic chronic kidney disease; F17.210 Nicotine dependence, cigarettes, uncomplicated; Z79.4 Long term (current) use of insulin; D63.1 Anemia in chronic kidney disease; D69.6 Thrombocytopenia, unspecified; Z95.5 Presence of coronary angioplasty implant and graft; Z79.82 Long term (current) use of aspirin; Z79.899 Other long term (current) drug therapy
CPT/HCPCS: 36415; 36416; 36600; 49083; 70450; 71045; 74018; 80048; 80053; 80076; 81001; 82042; 82140; 82728; 82805; 83036; 83540; 83550; 83605; 83690; 83735; 83880; 84157; 84443; 84484; 85025; 85610; 85730; 87040; 87070; 87177; 87205; 87209; 89051; 93005; 93010; 93306; J0696; J1644; J1815; J1940; J2272; J2354; J2470; J2543; J2550; J7030; J7050; P9047; Q0162

== ENCOUNTER 2025-07-21 13:25 | Inpatient (IN) | payer OTHER | END 2025-07-21 18:00 | disposition E | DRG 291 | LOC: PCU 13:25 | PROVIDERS: ADMIT Family Medicine; ATTEND Family Medicine | DX: I13.0 Hypertensive heart and chronic kidney disease with heart failure and stage 1 through stage 4 chronic kidney disease, or unspecified chronic kidney disease (principal); I50.21 Acute systolic (congestive) heart failure; E87.1 Hypo-osmolality and hyponatremia; R18.8 Other ascites; N18.4 Chronic kidney disease, stage 4 (severe); E11.22 Type 2 diabetes mellitus with diabetic chronic kidney disease; E78.5 Hyperlipidemia, unspecified; I25.10 Atherosclerotic heart disease of native coronary artery without angina pectoris; K74.60 Unspecified cirrhosis of liver; Z88.2 Allergy status to sulfonamides; Z88.1 Allergy status to other antibiotic agents; Z98.51 Tubal ligation status; Z89.411 Acquired absence of right great toe; Z95.1 Presence of aortocoronary bypass graft; Z98.49 Cataract extraction status, unspecified eye; Z87.891 Personal history of nicotine dependence; E88.09 Other disorders of plasma-protein metabolism, not elsewhere classified; Z79.4 Long term (current) use of insulin; D64.9 Anemia, unspecified; D69.6 Thrombocytopenia, unspecified ==